=== PATIENT | male | born 1960 | race Two or more races ===

== ENCOUNTER 2021-09-27 17:08 | Emergency (ER) | payer OTHER ==
[~2021-09-27] VITALS: Ht 348 cm; Wt 86.2 kg
--- NOTE | 2021-09-27 17:10 | NUR ---
MD at bedside, medical screening exam in progress.
[2021-09-27] MEDS ORDERED: ACETAMINOPHEN 325 MG TABLET ONE (18:02)
[2021-09-27] MEDS ORDERED: HYDROCODONE/APAP 5-325MG TABLET ONE (18:03)
[2021-09-27] MEDS: ACETAMINOPHEN 325 MG TABLET PO ONE ×2 (18:05→19:23)
[2021-09-27] MEDS: HYDROCODONE/APAP 5-325MG TABLET PO ONE ×2 (18:05→19:23)
[2021-09-27 19:25] VITALS: BP 124/82
--- NOTE | 2021-09-27 19:26 | NUR ---
Patient discharged to home in stable condition. Written and verbal after care instructions given. Patient verbalizes understanding of instructions. Stressed follow up or return to ER for worsening s/s.
== END 2021-09-27 19:26 | disposition home or self-care (01) ==
LOC: ER 17:10
DX: M54.9 Dorsalgia, unspecified (principal); M25.561 Pain in right knee
CPT/HCPCS: A4663